=== PATIENT | male | born 1955 | race Caucasian/White ===

== ENCOUNTER 2023-11-25 07:39 | Day surgery (SDC) | payer MEDICARE ==
[~2023-11-25] VITALS: Ht 175.3 cm; Wt 102.1 kg
[~2023-11-25 07:39] MED LIST: ASPI81CH PO; CELE200 PO; Crestor20 MG PO; FINA5 PO; Flomax0.4 MG PO; LOSA25 PO; METO25ER PO; NITR.4SL SL; OXYC5 PO
[2023-11-25 08:07] VITALS: BP 147/87
[2023-11-25] MEDS ORDERED: Heparin Sodium 1000 Units/ML 10ML MDV ONE ×2 (08:25→09:28)
[2023-11-25] MEDS ORDERED: Verapamil HCL 2.5 MG/ML 2ML Injection ONE (08:25)
[2023-11-25] MEDS ORDERED: NS 1,000 ML IV ONE ×2 (08:25→09:27)
[2023-11-25] MEDS ORDERED: Nitroglycerin 2 MG/20 ML BTL ONE (08:25)
[2023-11-25] MEDS ORDERED: NS 250 ML IV ONE (08:25)
[2023-11-25] MEDS ORDERED: FentaNYL Citrate 50 MCG/ML 2 ML Injection ONE (09:27)
[2023-11-25] MEDS ORDERED: Midazolam HCl 1MG / ML 2ML Vial ONE (09:27)
[2023-11-25 10:15] VITALS: BP 115/69
--- NOTE | 2023-11-25 10:15 | NUR ---
PATIENT ARRIVED TO RECOVERY ROOM SITTING UPRIGHT IN RECLINER. R RADIAL TR BAND C/D/I SOFT/NONTENDER, NO EVIDENCE OF BLEEDING. PATIENT DENYING ANY PAIN. VSS ON RA
[2023-11-25 10:30] VITALS: BP 115/69
[2023-11-25 10:45] VITALS: BP 110/59
--- NOTE | 2023-11-25 10:45 | NUR ---
PATIENT SITTING COMFORTABLY IN RECLINER, TOLERATING PO INTAKE WELL
[2023-11-25 11:05] VITALS: BP 120/65
--- NOTE | 2023-11-25 11:15 | NUR ---
INITIAL 2 CC OF AIR REMOVED FROM R RADIAL TR BAND. SITE C/D/I SOFT/NONTENDER, NO EVIDENCE OF BLEEDING. VSS ON RA
--- NOTE | 2023-11-25 11:16 | NUR ---
ALL AIR HAS BEEN REMOVED FROM TR BAND, NO BLEEDING OR SWELLING AT SITE. VSS, CALL LIGHT IN REACH. IS STILL WITH PATIENT, ALSO DECLINES NEEDS.
[2023-11-25 11:30] VITALS: BP 117/66
--- NOTE | 2023-11-25 11:56 | NUR ---
IV DC'D, CATH INTACT. PT AND SPOUSE GIVEN DC INSTRUCTIONS AND FOLLOW UP INFO, VERBALIZED UNDERSTANDING. RIGHT RADIAL SITE TR BAND REMOVED, CLOTH DOT DRESSING AND SPLINT IN PLACE. NO BLEEDING OR SWELLING AT TR BAND SITE. PT OUT TO CAR VIA WHEELCHAIR.
== END 2023-11-25 12:00 | disposition home or self-care (01) ==
LOC: MHTC 07:39
DX: I25.10 Atherosclerotic heart disease of native coronary artery without angina pectoris (principal); I50.20 Unspecified systolic (congestive) heart failure; E78.5 Hyperlipidemia, unspecified; Z95.5 Presence of coronary angioplasty implant and graft; Z79.82 Long term (current) use of aspirin
CPT/HCPCS: 76937; 93458; 99152; 99153; C1769; C1894; J1644; J2250; J3010; J7030; J7050; Q9967